=== PATIENT | male | born 1990 | race Caucasian/White ===

== ENCOUNTER → 2017-12-25 10:25 | Outpatient (POV) | payer BC, SELFPAY | PROVIDERS: Visit Provider Dentist | DX: Z00.00 Encounter for general adult medical examination without abnormal findings (principal) ==

== ENCOUNTER → 2018-01-08 08:11 | Outpatient (POV) | payer BC, SELFPAY | PROVIDERS: Visit Provider Dentist | DX: Z00.00 Encounter for general adult medical examination without abnormal findings (principal) ==

== ENCOUNTER 2021-10-11 09:11 | Emergency (ER) | payer BC, MEDICAID, SELFPAY ==
[2021-10-11 09:20] VITALS: BP 154/93; PULSE 83; RESP 16; TEMP 36.9; O2SAT 99; BMI 23.7
--- NOTE | 2021-10-11 09:36 | XR_ITS ---
FINAL REPORT CLINICAL HISTORY: pain/swelling darshan, pt states that the pain, redness, and swelling began yesterday afternoon at work, no known trauma. FINDINGS: LEFT HAND 3 views were obtained. There is no acute fracture or dislocation. The joint spaces are intact. There is no soft tissue abnormality. IMPRESSION: No acute bony abnormality. Reviewed, Interpreted and Dictated by Mannie Cannon III, MD Transcribed by Jeanie Lindsay Authenticated and [facility]
--- NOTE | 2021-10-11 10:08 | HMH.EDUTC ---
[facility] – [place] Disposition Clinical Impression: Hand contusion Qualifiers: Encounter type: initial encounter Laterality: right Qualified Code(s): S60.221A - Contusion of right hand, initial encounter Disposition: Home, Self-Care Condition on Discharge: Good Instructions: Contusion, DI for Contusion, How To Perform RICE (Rest, Ice, Compress, Elevate) Additional Instructions: *RICE, Rest the extremity, Ice 15-20 minutes 3-4 times daily, Compress- wear the dashawn wrap as discussed as much as possible to help reduce swelling and pain, Elevate the extremity when at rest *Dashawn wrap is for support and help control swelling, use it except in the shower. Be sure that is not to tight but not to loose either *Elevate when resting *Ibuprofen every 6-8 hours as needed for pain an inflammation. If need something more can take Tylenol in between doses of Ibuprofen to help Immediately follow up with your family doctor for new or worsening of symptoms, or no noticeable improvement over the next 3-5 days Referrals: Provider,Referral, MD [Primary Care Provider] - As needed Time of Disposition: 10:17 Medical Decision Making - Shakir Inquiry Pt receiving controlled substance: No Shakir was queried for this patient: No Vital Signs: 10/11/21 09:20 10/11/21 10:21 Temperature 98.5 F 98.5 F Temperature Source Oral Pulse Rate 83 Pulse Rate [Right Brachial] 83 Respiratory Rate 16 16 Blood Pressure 154/93 H Blood Pressure [Right Arm] 154/93 H Blood Pressure Mean [Right Arm] 113 Blood Pressure Source [Right Arm] Automatic Cuff Blood Pressure Position [Right Arm] Sitting 02 Sat by Pulse Oximetry 99 Oxygen Delivery Method Room Air - Lab Data Lab results reviewed: Yes: I reviewed the patient's lab results. Lab Results 10/11/21 09:33: Uric Acid 4.7 Orders (Tests/Meds): ORDERS Category Date Time Status Hand XR left minimum 3 views [XR hand LT min 3V] Stat Exams 10/11/21 09:36 Taken - Radiology Data #1 Image(s): Hand Image Reviewed: Yes I reviewed the patient's radiology image Preliminary Findings: No Fracture Seen [facility] [place] HPI - General Stated complaint: left kunckle swelling Time Seen by Provider: 10/11/21 09:30 Mode of Arrival: Ambulatory Source of Information: Patient Limitations: No Limitations Description of Symptoms (Recalled from Triage Doc. by RN): PATIENT C/O SWELLING TO KNUCKLE OF LEFT MIDDLE FINGER X 2 DAYS. 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 noticed for the last couple of days that it looks like his knuckle on his left middle finger is bruised and swells at times States that he didnt do anything that he is aware of to it and denies hitting it but it is sore and hurts when he bends it - Related Data Home Medications Medication Instructions Recorded Confirmed Metoprolol Succinate [Metoprolol 50 mg PO DAILY 10/11/21 10/11/21 Succinate 25mg Tablet*] lisinopriL [Lisinopril] 5 mg PO DAILY 10/11/21 10/11/21 Allergies Allergy/AdvReac Type Severity Reaction Status Date / Time No Known Allergies Allergy Verified 10/11/21 09:48 - Worker's Comp Is this a Worker's Comp case?: No [facility] History - Hepatitis A Screen Attestation statement:: This patient has been screened for Hepatitis A risk factors. I have reviewed the patient's past medical history: Yes - Social History Smoking Status: Current every day smoker Tobacco Type: cigarettes # Packs/Day (cigarettes): 1 Alcohol Intake: never Occupational Status: other ROS Obtained: Yes All systems reviewed & no additional complaints, Yes Systems reviewed as appropriate & no additional complaints - Constitutional Constitutional: Reports system review
[2021-10-11 10:12] LABS: Uric Acid 4.7 mg/dl (3.5-8.5)
[2021-10-11 10:21] VITALS: BP 154/93; PULSE 83; RESP 16; TEMP 36.9; O2SAT 99
== END 2021-10-11 10:29 | disposition home or self-care (01) ==
PROVIDERS: Emergency Provider Nurse Practitioner
DX: S60.221A Contusion of right hand, initial encounter (principal)
CPT/HCPCS: 73130; 84550; 99212; G0463

== ENCOUNTER → 2022-12-25 13:59 | Outpatient (CLI) | payer BC, SELFPAY ==
[2022-12-25 13:49] LABS: Basophils % 0.4 % (0.1-2.0); Eosinophils # 0.1 K/mm3 (0.0-0.4); Eosinophils % 0.9 % (0.1-12.0); Hematocrit 52.1 % (42.0-52.0); Hemoglobin 17.3 g/dL (14.1-18.0); Lymphocytes # 1.6 K/mm3 (0.7-4.5); Lymphocytes % 22.5 % (10-50); Mean Corpuscular HGB Conc 33.2 g/dL (31.8-35.4); Mean Corpuscular Hemoglobin 31.3 pg (27.0-31.2); Mean Corpuscular Volume 94.3 fl (80-94); Mean Platelet Volume 8.4 fl (7.4-10.4); Monocytes # 0.6 K/mm3 (0.1-1.0); Monocytes % 7.6 % (1.7-9.3); Neutrophils % 68.7 % (37.0-80.0); Platelet Count 372 K/mm3 (142-424); Red Blood Count 5.53 M/mm3 (4.60-6.20); Red Cell Distribution Width 12.8 % (11.5-17.5); White Blood Count 7.3 K/mm3 (4.8-10.8)
[2022-12-25 14:52] LABS: Alanine Aminotransferase 19 U/L (12-78); Albumin Level 5.2 g/dl (3.5-5.0); Albumin/Globulin Ratio 1.8 (1.1-1.8); Alkaline Phosphatase 99 U/L (38-126); Anion Gap 14.7 mEq/L (5-15); Aspartate Amino Transferase 36 U/L (17-59); Bilirubin,Total 0.6 mg/dl (0.2-1.3); Blood Urea Nitrogen 10 mg/dl (9-20); Calcium 9.7 mg/dl (8.4-10.2); Carbon Dioxide 29 mmol/L (22.0-30.0); Chloride 100 mmol/L (98-107); Chol/HDL Ratio 3.4 (1-3.5); Cholesterol 181 mg/dl (140-200); Estimated Glomerular Filt Rate 98 ml/min (>60); GFR (African American) 119 ML/MIN (>60); Globulin 2.9 g/dL (1.3-3.2); Glucose 92 mg/dl (74-100); HDL Cholesterol 54 mg/dl (40-60); Potassium 3.7 mmoL/L (3.5-5.1); Sodium 140 mmol/L (136-145); Total Protein,Serum 8.1 g/dl (6.3-8.2); Triglycerides 42 mg/dl (30-150); VLDL Cholesterol 8 mg/dL (0-40)
[2022-12-25 15:03] LABS: Direct LDL Cholesterol 110.32 mg/dL (100-129)
[2022-12-25 15:09] LABS: Free T4 (Free Thyroxine) 1.25 ng/dl (0.78-2.19)
[2022-12-25 15:22] LABS: Thyroid Stimulating Hormone 4.07 uIU/mL (0.465-4.68)
[2022-12-27 11:55] LABS: HCV Ab Non Reactive (Non Reactive); HIV Screen 4th Generation wRfx Non Reactive (Non Reactive)
== END ==
PROVIDERS: PCP Internal Medicine; Visit Provider Internal Medicine
DX: Z00.00 Encounter for general adult medical examination without abnormal findings (principal); Z13.29 Encounter for screening for other suspected endocrine disorder; Z11.59 Encounter for screening for other viral diseases; Z13.21 Encounter for screening for nutritional disorder; Z13.1 Encounter for screening for diabetes mellitus; Z13.220 Encounter for screening for lipoid disorders; Z11.4 Encounter for screening for human immunodeficiency virus [HIV]
CPT/HCPCS: 80053; 80061; 82306; 83036; 84439; 84443; 85025; 86703; G0432

== ENCOUNTER → 2023-01-02 09:54 | Outpatient (CLI) | payer BC, SELFPAY | LOC: RT 09:56 | PROVIDERS: PCP Internal Medicine; Visit Provider Nurse Practitioner | DX: R94.31 Abnormal electrocardiogram [ECG] [EKG] (principal); I10 Essential (primary) hypertension; R00.2 Palpitations; R06.00 Dyspnea, unspecified; R55 Syncope and collapse; R60.0 Localized edema; F15.11 Other stimulant abuse, in remission; Z72.0 Tobacco use | CPT/HCPCS: 93270 ==

== ENCOUNTER → 2023-02-04 10:20 | Outpatient (CLI) | payer BC, SELFPAY | PROVIDERS: PCP Internal Medicine; Visit Provider Nurse Practitioner | DX: G47.30 Sleep apnea, unspecified (principal); G47.419 Narcolepsy without cataplexy; R06.00 Dyspnea, unspecified; R00.2 Palpitations; R55 Syncope and collapse; R42 Dizziness and giddiness; R07.9 Chest pain, unspecified; R94.31 Abnormal electrocardiogram [ECG] [EKG]; Z72.0 Tobacco use | CPT/HCPCS: G0399 ==